=== PATIENT | female | born 1985 | race African-American/Black ===

== ENCOUNTER 2019-06-27 01:23 | Emergency (ER) | payer SELFPAY ==
[~2019-06-27] VITALS: Ht 160 cm; Wt 71.2 kg
[2019-06-27] MEDS ORDERED: KETOROLAC 30MG/ML VIAL IV STA (02:24)
[2019-06-27 03:05] LABS: BASOPHILS % 0.7 % (0.0-2.0); EOSINOPHILS % 1.4 % (0.0-5.0); HEMATOCRIT. 34.1 % (36.0-48.0); HEMOGLOBIN. 11.3 g/dL (12.0-16.0); LYMPHOCYTES % 38.5 % (20.0-50.0); MEAN CORPUSCULAR HEMOGLOBIN 27.2 pg (28.0-32.0); MEAN CORPUSCULAR VOLUME 82.6 fL (81.0-99.0); MEAN PLATELET VOLUME 7.9 fl (7.4-10.4); MONOCYTES % 8.3 % (2.0-8.0); NEUTROPHILS % 51.1 % (40.0-76.0); PLATELET 257 x1000/uL (130-400); RED BLOOD CELL COUNT 4.13 mill/uL (4.2-5.4); RED CELL DISTRIBUTION WIDTH 17.2 % (11.6-14.6)
[2019-06-27 03:07] LABS: CHLORIDE 107 mEq/L (98-107)
[2019-06-27 03:16] LABS: CLARITY URINE CLEAR (CLEAR); COLOR URINE DARK YELLOW (YELLOW); KETONES URINE NEGATIVE (NEGATIVE); LEUKOCYTE ESTERASE URINE NEGATIVE (NEGATIVE); NITRITE URINE NEGATIVE (NEGATIVE); OCCULT BLOOD URINE NEGATIVE (NEGATIVE); PROTEIN URINE NEGATIVE (NEGATIVE); SPECIFIC GRAVITY URINE 1.015 (1.005-1.030); UROBILINOGEN URINE 0.2 E.U./dL (0.2-1.0)
[2019-06-27] MEDS ORDERED: AZITHROMYCIN 500 MG TABLET PO ONE (04:15)
[2019-06-27] MEDS ORDERED: LIDOCAINE HCL/PF 1% 10 MG/ML 5ML VIAL IJ ONE (04:15)
[2019-06-27] MEDS ORDERED: CEFTRIAXONE SODIUM 250 MG/VIAL IM ONE (04:15)
[2019-06-27 05:00] VITALS: BP 112/60
[2019-06-29 04:07] LABS: CHLAMYDIA TRACHOMATIS NAA Negative (Negative); NEISSERIA GONORRHOEAE NAA Negative (Negative)
== END 2019-06-27 05:25 | disposition home or self-care (01) ==
LOC: ER 01:23
DX: N83.209 Unspecified ovarian cyst, unspecified side (principal); N89.8 Other specified noninflammatory disorders of vagina; Z11.3 Encounter for screening for infections with a predominantly sexual mode of transmission; J45.909 Unspecified asthma, uncomplicated
CPT/HCPCS: 36415; 76830; 76856; 80053; 81003; 81025; 83690; 85025; 85610; 87210; 87491; 87591; 93005; 99284; J1885

== ENCOUNTER 2019-10-08 22:47 | Emergency (ER) | payer MEDICARE, MEDICAID ==
[~2019-10-08] VITALS: Ht 160 cm; Wt 68.0 kg
[2019-10-09] MEDS ORDERED: KETOROLAC 60MG/2ML VIAL IM STA (01:57)
[2019-10-09 02:31] LABS: BASOPHILS % 1.3 % (0.0-2.0); EOSINOPHILS % 0.6 % (0.0-5.0); HEMATOCRIT. 35.2 % (36.0-48.0); HEMOGLOBIN. 11.6 g/dL (12.0-16.0); LYMPHOCYTES % 33.6 % (20.0-50.0); MEAN CORPUSCULAR HEMOGLOBIN 27.2 pg (28.0-32.0); MEAN CORPUSCULAR VOLUME 82.4 fL (81.0-99.0); MEAN PLATELET VOLUME 7.5 fl (7.4-10.4); MONOCYTES % 5.6 % (2.0-8.0); NEUTROPHILS % 58.9 % (40.0-76.0); PLATELET 281 x1000/uL (130-400); RED BLOOD CELL COUNT 4.28 mill/uL (4.2-5.4); RED CELL DISTRIBUTION WIDTH 15.6 % (11.6-14.6)
[2019-10-09 02:36] LABS: CHLORIDE 106 mEq/L (98-107); PROTHROMBIN TIME 10.8 sec (9.6-11.0)
[2019-10-09 02:47] LABS: B-HCG QUANTITATIVE 6 mIU/mL (<3)
[2019-10-09 03:38] LABS: CLARITY URINE CLEAR (CLEAR); COLOR URINE YELLOW (YELLOW); KETONES URINE TRACE (NEGATIVE); LEUKOCYTE ESTERASE URINE NEGATIVE (NEGATIVE); NITRITE URINE NEGATIVE (NEGATIVE); OCCULT BLOOD URINE NEGATIVE (NEGATIVE); PH URINE 5.5 (4.5-8.0); PROTEIN URINE NEGATIVE (NEGATIVE); SPECIFIC GRAVITY URINE 1.024 (1.005-1.030); UROBILINOGEN URINE 0.2 E.U./dL (0.2-1.0)
[2019-10-09 03:48] LABS: *AMPHETAMINES SCREEN URINE NEGATIVE (NEGATIVE); *BARBITURATES SCREEN URINE NEGATIVE (NEGATIVE); *BENZODIAZEPINES SCREEN URINE NEGATIVE (NEGATIVE); *COCAINE SCREEN URINE NEGATIVE (NEGATIVE)
[2019-10-09 03:49] LABS: METHADONE URINE SCREEN NEGATIVE (NEGATIVE); OPIATES URINE SCREEN NEGATIVE (NEGATIVE); PHENCYCLIDINE URINE SCREEN NEGATIVE (NEGATIVE)
[2019-10-09 04:06] VITALS: BP 101/73
[2019-10-09 04:10] LABS: CANNABINOID URINE SCREEN PRESUMTIVE POSITIVE (NEGATIVE)
== END 2019-10-09 04:06 | disposition home or self-care (01) ==
LOC: ER 22:47
DX: D25.9 Leiomyoma of uterus, unspecified (principal); N83.209 Unspecified ovarian cyst, unspecified side; R10.9 Unspecified abdominal pain; J45.909 Unspecified asthma, uncomplicated
CPT/HCPCS: 36415; 76830; 76856; 80053; 80305; 81003; 81025; 84702; 85025; 99284; J1885

== ENCOUNTER 2019-11-02 22:51 | Emergency (ER) | payer MEDICARE, MEDICAID ==
[~2019-11-02] VITALS: Ht 160 cm; Wt 71.0 kg
[2019-11-03] MEDS ORDERED: ACETAMINOPHEN 325MG TABLET PO ONE
[2019-11-03 00:40] LABS: BASOPHILS % 0.6 % (0.0-2.0); EOSINOPHILS % 1.1 % (0.0-5.0); HEMATOCRIT. 36.1 % (36.0-48.0); HEMOGLOBIN. 12.3 g/dL (12.0-16.0); MEAN CORPUSCULAR HEMOGLOBIN 28.2 pg (28.0-32.0); MEAN CORPUSCULAR VOLUME 83.1 fL (81.0-99.0); MEAN PLATELET VOLUME 8.1 fl (7.4-10.4); MONOCYTES % 5.8 % (2.0-8.0); NEUTROPHILS % 65.5 % (40.0-76.0); PLATELET 339 x1000/uL (130-400); RED BLOOD CELL COUNT 4.34 mill/uL (4.2-5.4); RED CELL DISTRIBUTION WIDTH 15.7 % (11.6-14.6)
[2019-11-03 00:42] LABS: CLARITY URINE CLOUDY (CLEAR); COLOR URINE YELLOW (YELLOW); KETONES URINE TRACE (NEGATIVE); LEUKOCYTE ESTERASE URINE NEGATIVE (NEGATIVE); NITRITE URINE NEGATIVE (NEGATIVE); OCCULT BLOOD URINE NEGATIVE (NEGATIVE); PROTEIN URINE NEGATIVE (NEGATIVE); SPECIFIC GRAVITY URINE 1.034 (1.005-1.030)
[2019-11-03 00:52] LABS: CHLORIDE 109 mEq/L (98-107)
[2019-11-03 03:00] VITALS: BP 121/71
== END 2019-11-03 03:04 | disposition home or self-care (01) ==
LOC: ER 22:51
DX: D25.9 Leiomyoma of uterus, unspecified (principal); N83.00 Follicular cyst of ovary, unspecified side; J45.909 Unspecified asthma, uncomplicated; N94.0 Mittelschmerz
CPT/HCPCS: 36415; 76830; 76856; 80053; 81003; 81025; 85025; 99284

== ENCOUNTER 2019-11-30 07:43 | Emergency (ER) | payer MEDICAID, MEDICARE ==
[~2019-11-30] VITALS: Ht 160 cm; Wt 70.9 kg
[2019-11-30] MEDS ORDERED: ACETAMINOPHEN 500MG TABLET PO ONE (08:45)
[2019-11-30 08:58] VITALS: BP 135/80
== END 2019-11-30 08:55 | disposition home or self-care (01) ==
LOC: ER 07:43
DX: B34.9 Viral infection, unspecified (principal); J45.909 Unspecified asthma, uncomplicated; Z98.890 Other specified postprocedural states
CPT/HCPCS: 71045; 93005; 99283

== ENCOUNTER 2020-02-19 18:56 | Emergency (ER) | payer MEDICARE, MEDICAID ==
[~2020-02-19] VITALS: Ht 172.7 cm; Wt 75.0 kg
[2020-02-19] MEDS ORDERED: SODIUM CHLORIDE 0.9% 1,000 ML IV ONE (19:17)
[2020-02-19 19:43] LABS: CLARITY URINE CLOUDY (CLEAR); COLOR URINE YELLOW (YELLOW); KETONES URINE 1+ (NEGATIVE); LEUKOCYTE ESTERASE URINE 2+ (NEGATIVE); NITRITE URINE NEGATIVE (NEGATIVE); OCCULT BLOOD URINE NEGATIVE (NEGATIVE); PROTEIN URINE 1+ (NEGATIVE); SPECIFIC GRAVITY URINE 1.043 (1.005-1.030)
[2020-02-19] MEDS ORDERED: ACETAMINOPHEN 325MG TABLET PO NR (20:15)
[2020-02-19] MEDS ORDERED: CEFTRIAXONE 1 G PREMIX 50 ML IV SCH (20:15)
[2020-02-19 20:56] LABS: BASOPHILS % 0.6 % (0.0-2.0); EOSINOPHILS % 0.6 % (0.0-5.0); HEMOGLOBIN. 12.6 g/dL (12.0-16.0); MEAN CORPUSCULAR HEMOGLOBIN 29.1 pg (28.0-32.0); MEAN CORPUSCULAR VOLUME 85.8 fL (81.0-99.0); MEAN PLATELET VOLUME 7.3 fl (7.4-10.4); NEUTROPHILS % 76.8 % (40.0-76.0); PLATELET 265 x1000/uL (130-400); RED BLOOD CELL COUNT 4.31 mill/uL (4.2-5.4); RED CELL DISTRIBUTION WIDTH 14.1 % (11.6-14.6)
[2020-02-19 20:59] LABS: CHLORIDE 104 mEq/L (98-107)
[2020-02-19 22:30] VITALS: BP 122/67
== END 2020-02-20 00:20 | disposition home or self-care (01) ==
LOC: ER 18:56
DX: O26.892 Other specified pregnancy related conditions, second trimester (principal); O23.42 Unspecified infection of urinary tract in pregnancy, second trimester; J45.909 Unspecified asthma, uncomplicated; Z3A.14 14 weeks gestation of pregnancy
CPT/HCPCS: 36415; 76805; 76817; 80053; 81003; 81025; 85025; 86850; 86900; 86901; 87086; 96374; 99284; J0696; J7030

== ENCOUNTER 2020-02-23 11:17 | Emergency (ER) | payer MEDICARE, MEDICAID ==
[~2020-02-23] VITALS: Ht 160 cm; Wt 83.0 kg
[2020-02-23 16:59] LABS: CLARITY URINE CLEAR (CLEAR); COLOR URINE YELLOW (YELLOW); KETONES URINE NEGATIVE (NEGATIVE); LEUKOCYTE ESTERASE URINE 3+ (NEGATIVE); NITRITE URINE NEGATIVE (NEGATIVE); OCCULT BLOOD URINE NEGATIVE (NEGATIVE); PROTEIN URINE NEGATIVE (NEGATIVE); SPECIFIC GRAVITY URINE 1.021 (1.005-1.030); UROBILINOGEN URINE 0.2 E.U./dL (0.2-1.0)
[2020-02-23 17:08] LABS: *AMPHETAMINES SCREEN URINE NEGATIVE (NEGATIVE); *BARBITURATES SCREEN URINE NEGATIVE (NEGATIVE); *COCAINE SCREEN URINE NEGATIVE (NEGATIVE)
[2020-02-23 17:09] LABS: *BENZODIAZEPINES SCREEN URINE NEGATIVE (NEGATIVE); CANNABINOID URINE SCREEN NEGATIVE (NEGATIVE); METHADONE URINE SCREEN NEGATIVE (NEGATIVE); OPIATES URINE SCREEN NEGATIVE (NEGATIVE); PHENCYCLIDINE URINE SCREEN NEGATIVE (NEGATIVE)
[2020-02-23 17:31] LABS: BASOPHILS % 0.4 % (0.0-2.0); EOSINOPHILS % 0.6 % (0.0-5.0); HEMATOCRIT. 34.9 % (36.0-48.0); HEMOGLOBIN. 11.8 g/dL (12.0-16.0); LYMPHOCYTES % 18.1 % (20.0-50.0); MEAN CORPUSCULAR HEMOGLOBIN 29.3 pg (28.0-32.0); MEAN CORPUSCULAR VOLUME 86.4 fL (81.0-99.0); MEAN PLATELET VOLUME 7.7 fl (7.4-10.4); MONOCYTES % 6.2 % (2.0-8.0); NEUTROPHILS % 74.7 % (40.0-76.0); PLATELET 254 x1000/uL (130-400); RED BLOOD CELL COUNT 4.04 mill/uL (4.2-5.4); RED CELL DISTRIBUTION WIDTH 14.3 % (11.6-14.6)
[2020-02-23 17:38] LABS: CHLORIDE 101 mEq/L (98-107)
[2020-02-23 18:02] LABS: B-HCG QUANTITATIVE 57765 mIU/mL (<3)
[2020-02-23 18:11] VITALS: BP 118/60
== END 2020-02-23 18:14 | disposition home or self-care (01) ==
LOC: ER 11:29
DX: O20.0 Threatened abortion (principal); O23.32 Infections of other parts of urinary tract in pregnancy, second trimester; Z3A.14 14 weeks gestation of pregnancy; J45.909 Unspecified asthma, uncomplicated; Z98.890 Other specified postprocedural states
CPT/HCPCS: 36415; 76805; 80053; 80305; 81003; 81025; 84702; 85025; 86850; 86900; 99284

== ENCOUNTER 2020-06-15 01:26 | Observation (INO) | payer MEDICARE, MEDICAID ==
[~2020-06-15] VITALS: Ht 160 cm; Wt 86.2 kg
[2020-06-15] MEDS ORDERED: FERR236T3 MT (02:43)
[2020-06-15] MEDS ORDERED: PNV1TABL76 PO (02:43)
[2020-06-15] MEDS ORDERED: LACTATED RINGERS 1,000 ML IV SCH (02:45)
[2020-06-15] MEDS ORDERED: TERBUTALINE SULFATE 1MG/ML VIAL SUBCUT ONE (02:45)
[2020-06-15 03:16] LABS: CLARITY URINE CLEAR (CLEAR); COLOR URINE YELLOW (YELLOW); KETONES URINE 1+ (NEGATIVE); LEUKOCYTE ESTERASE URINE TRACE (NEGATIVE); NITRITE URINE NEGATIVE (NEGATIVE); OCCULT BLOOD URINE NEGATIVE (NEGATIVE); PROTEIN URINE NEGATIVE (NEGATIVE); SPECIFIC GRAVITY URINE 1.021 (1.005-1.030); UROBILINOGEN URINE 0.2 E.U./dL (0.2-1.0)
== END 2020-06-15 05:15 | disposition home or self-care (01) ==
LOC: 8 EST LDRP 01:26
PROVIDERS: ADMIT Specialist; ATTEND Specialist
DX: O26.893 Other specified pregnancy related conditions, third trimester (principal); R10.9 Unspecified abdominal pain; Z3A.30 30 weeks gestation of pregnancy
CPT/HCPCS: 59025; 81003; 96360; 96361; 96372; G0378; J3105; 59412; 99281

== ENCOUNTER 2020-08-15 03:22 | Observation (INO) | payer MEDICARE, MEDICAID ==
[~2020-08-15] VITALS: Ht 160 cm; Wt 96.2 kg
[~2020-08-15 03:22] MED LIST: FERR236T3 MT; PNV1TABL76 PO
== END 2020-08-15 06:10 | disposition home or self-care (01) ==
LOC: 8 EST LDRP 03:22
PROVIDERS: ADMIT Obstetrics & Gynecology; ATTEND Obstetrics & Gynecology
DX: O26.893 Other specified pregnancy related conditions, third trimester (principal); R10.30 Lower abdominal pain, unspecified; Z3A.39 39 weeks gestation of pregnancy
CPT/HCPCS: 59025; 76805; 76818; 99281; G0378

== ENCOUNTER 2020-09-10 00:01 | Emergency (ER) | payer MEDICARE, MEDICAID ==
[~2020-09-10] VITALS: Ht 162.6 cm; Wt 88.0 kg
[2020-09-10 00:07] VITALS: BP 129/93
== END 2020-09-10 00:44 | disposition home or self-care (01) ==
LOC: ER 00:01
DX: Z48.00 Encounter for change or removal of nonsurgical wound dressing (principal)
CPT/HCPCS: 99282

== ENCOUNTER 2021-09-08 23:12 | Emergency (ER) | payer MEDICARE, MEDICAID ==
[~2021-09-08] VITALS: Ht 160 cm; Wt 77.3 kg
[2021-09-08 23:27] VITALS: BP 116/68
[2021-09-09] MEDS ORDERED: ACETAMINOPHEN 325MG TABLET PO STA (00:22)
[2021-09-09 01:15] LABS: CLARITY URINE CLOUDY (CLEAR); COLOR URINE DK YELLOW (YELLOW); KETONES URINE TRACE (NEGATIVE); LEUKOCYTE ESTERASE URINE NEGATIVE (NEGATIVE); NITRITE URINE NEGATIVE (NEGATIVE); OCCULT BLOOD URINE NEGATIVE (NEGATIVE); PROTEIN URINE 1+ (NEGATIVE); SPECIFIC GRAVITY URINE 1.038 (1.005-1.030)
[2021-09-09] MEDS ORDERED: CEPH500C2 MT (01:56)
== END 2021-09-09 02:24 | disposition home or self-care (01) ==
LOC: ER 23:12
DX: M79.89 Other specified soft tissue disorders (principal); N39.0 Urinary tract infection, site not specified; J45.909 Unspecified asthma, uncomplicated; Z98.890 Other specified postprocedural states
CPT/HCPCS: 81003; 81025; 93971; 99284

== ENCOUNTER 2021-11-15 21:49 | Observation (INO) | payer MEDICARE, MEDICAID ==
[~2021-11-15] VITALS: Ht 160 cm; Wt 84.4 kg
[~2021-11-15 21:49] MED LIST changes: +CEPH500C2 MT; -FERR236T3 MT; -PNV1TABL76 PO
[2021-11-15] MEDS ORDERED: ACETAMINOPHEN 500MG TABLET PO PRN (23:15)
[2021-11-16 00:16] LABS: CLARITY URINE CLOUDY (CLEAR); COLOR URINE YELLOW (YELLOW); KETONES URINE 2+ (NEGATIVE); LEUKOCYTE ESTERASE URINE 1+ (NEGATIVE); NITRITE URINE NEGATIVE (NEGATIVE); OCCULT BLOOD URINE NEGATIVE (NEGATIVE); PROTEIN URINE 1+ (NEGATIVE); SPECIFIC GRAVITY URINE 1.033 (1.005-1.030)
[2021-11-16] MEDS ORDERED: LACTATED RINGERS 1,000 ML IV ONE (02:00)
== END 2021-11-16 03:00 | disposition home or self-care (01) ==
LOC: 8 EST LDRP 21:49
PROVIDERS: ADMIT Obstetrics & Gynecology; ATTEND Obstetrics & Gynecology
DX: O26.893 Other specified pregnancy related conditions, third trimester (principal); R10.30 Lower abdominal pain, unspecified; O62.9 Abnormality of forces of labor, unspecified; O99.891 Other specified diseases and conditions complicating pregnancy; M54.9 Dorsalgia, unspecified; O09.523 Supervision of elderly multigravida, third trimester; Z3A.27 27 weeks gestation of pregnancy
CPT/HCPCS: 59025; 76805; 76818; 81003; 96360; A4215; G0378; 99281

== ENCOUNTER 2022-01-10 05:22 | Emergency (ER) | payer MEDICARE, MEDICAID ==
[~2022-01-10] VITALS: Ht 160 cm; Wt 80.0 kg
[2022-01-10 06:39] LABS: BASOPHILS % 0.6 % (0.0-2.0); EOSINOPHILS % 2.1 % (0.0-5.0); HEMATOCRIT. 36.1 % (36.0-48.0); HEMOGLOBIN. 11.8 g/dL (12.0-16.0); MEAN CORPUSCULAR HEMOGLOBIN 27.3 pg (28.0-32.0); MEAN CORPUSCULAR VOLUME 83.7 fL (81.0-99.0); MEAN PLATELET VOLUME 8.3 fl (7.4-10.4); MONOCYTES % 7.6 % (2.0-8.0); NEUTROPHILS % 56.7 % (40.0-76.0); PLATELET 185 x1000/uL (130-400); RED BLOOD CELL COUNT 4.31 mill/uL (4.2-5.4)
[2022-01-10 06:45] LABS: CHLORIDE 112 mEq/L (98-107)
[2022-01-10 06:47] LABS: PROTHROMBIN TIME 10.3 sec (9.6-11.0)
[2022-01-10 09:59] VITALS: BP 124/84
== END 2022-01-10 10:02 | disposition home or self-care (01) ==
LOC: ER 05:22
DX: G89.18 Other acute postprocedural pain (principal); Z48.01 Encounter for change or removal of surgical wound dressing; J45.909 Unspecified asthma, uncomplicated; Z98.890 Other specified postprocedural states
CPT/HCPCS: 36415; 74176; 80053; 83605; 85025; 99284

== ENCOUNTER 2022-01-22 15:59 | Emergency (ER) | payer MEDICARE, MEDICAID ==
[~2022-01-22] VITALS: Ht 160 cm; Wt 78.0 kg
[2022-01-22 17:07] VITALS: BP 146/78
[2022-01-22 19:50] LABS: BASOPHILS % 0.6 % (0.0-2.0); HEMATOCRIT. 37.4 % (36.0-48.0); LYMPHOCYTES % 35.7 % (20.0-50.0); MEAN CORPUSCULAR HEMOGLOBIN 27.3 pg (28.0-32.0); MEAN CORPUSCULAR VOLUME 84.9 fL (81.0-99.0); MEAN PLATELET VOLUME 7.9 fl (7.4-10.4); MONOCYTES % 5.6 % (2.0-8.0); NEUTROPHILS % 57.1 % (40.0-76.0); PLATELET 238 x1000/uL (130-400); RED BLOOD CELL COUNT 4.41 mill/uL (4.2-5.4)
[2022-01-22 19:52] LABS: CHLORIDE 105 mEq/L (98-107)
[2022-01-22 20:01] LABS: HCG SCREEN NEGATIVE
== END 2022-01-22 21:00 | disposition left against medical advice (07) ==
LOC: ER 15:59
DX: M79.10 Myalgia, unspecified site (principal); R11.0 Nausea; R68.83 Chills (without fever)
CPT/HCPCS: 36415; 71045; 80053; 83605; 84484; 84703; 85025; 93005; 99285

== ENCOUNTER 2022-04-02 15:54 | Emergency (ER) | payer MEDICARE, MEDICAID ==
[~2022-04-02] VITALS: Ht 160 cm; Wt 85.0 kg
[2022-04-02] MEDS ORDERED: ACETAMINOPHEN 325MG TABLET PO ONE (20:45)
[2022-04-02] MEDS ORDERED: ACET-2708 MT (21:33)
[2022-04-02 22:00] VITALS: BP 125/75
== END 2022-04-03 02:10 | disposition home or self-care (01) ==
LOC: ER 15:54
DX: S93.491A Sprain of other ligament of right ankle, initial encounter (principal); X58.XXXA Exposure to other specified factors, initial encounter; Y93.89 Activity, other specified; Y92.89 Other specified places as the place of occurrence of the external cause; Y99.8 Other external cause status; J45.909 Unspecified asthma, uncomplicated; Z98.890 Other specified postprocedural states
CPT/HCPCS: 73610; 81025; 99283

== ENCOUNTER 2022-08-07 10:41 | Emergency (ER) | payer MEDICARE, MEDICAID ==
[~2022-08-07] VITALS: Ht 160 cm; Wt 77.0 kg
[~2022-08-07 10:41] MED LIST changes: +ACET-2708 MT
[2022-08-07 10:44] VITALS: BP 132/82
[2022-08-07] MEDS ORDERED: ACETAMINOPHEN 325MG TABLET PO ONE (13:15)
[2022-08-07] MEDS ORDERED: TOPUD MT (13:19)
[2022-08-07] MEDS ORDERED: CEPH500C2 MT (13:19)
== END 2022-08-07 13:37 | disposition home or self-care (01) ==
LOC: ER 10:41
DX: M79.89 Other specified soft tissue disorders (principal); Z59.00 Homelessness unspecified; J45.909 Unspecified asthma, uncomplicated; Z98.890 Other specified postprocedural states; Z79.899 Other long term (current) drug therapy
CPT/HCPCS: 81025; 99283

== ENCOUNTER 2024-02-10 19:45 | Emergency (ER) | payer MEDICARE, MEDICAID ==
[~2024-02-10] VITALS: Ht 160 cm; Wt 89.0 kg
[~2024-02-10 19:45] MED LIST changes: +TOPUD MT
[2024-02-10 19:52] VITALS: O2SAT 100
[2024-02-10 20:22] LABS: BASOPHILS % 0.6 % (0.0-2.0); EOSINOPHILS % 0.3 % (0.0-5.0); HEMATOCRIT. 32.6 % (36.0-48.0); HEMOGLOBIN. 10.9 g/dL (12.0-16.0); MEAN CORPUSCULAR HEMOGLOBIN 29.4 pg (28.0-32.0); MEAN CORPUSCULAR HGB CONC 33.3 g/dL (31.0-37.0); MEAN CORPUSCULAR VOLUME 88.4 fL (81.0-99.0); MEAN PLATELET VOLUME 7.7 fl (7.4-10.4); MONOCYTES % 8.2 % (2.0-8.0); NEUTROPHILS % 70.9 % (40.0-76.0); PLATELET 299 x1000/uL (130-400); RED BLOOD CELL COUNT 3.68 mill/uL (4.2-5.4); RED CELL DISTRIBUTION WIDTH 13.7 % (11.6-14.6); WHITE BLOOD COUNT 12.3 x1000/uL (4.5-11.0)
[2024-02-10 20:27] LABS: CHLORIDE 104 mEq/L (98-107); SODIUM 136 mEq/L (136-145)
[2024-02-10 20:28] LABS: CARBON DIOXIDE 22 mEq/L (21-32)
[2024-02-10 20:29] LABS: CALCIUM 8.8 mg/dL (8.7-10.4)
[2024-02-10 20:33] LABS: CREATININE 0.7 mg/dL (0.6-1.0); GLUCOSE 89 mg/dL (70-105)
[2024-02-10 20:34] LABS: UREA NITROGEN BLOOD 9 mg/dL (9-23)
[2024-02-10 21:16] VITALS: BP 126/65; PULSE 81; RESP 16; TEMP 98.4
== END 2024-02-10 21:42 | disposition left against medical advice (07) ==
LOC: ER 19:45
DX: O26.893 Other specified pregnancy related conditions, third trimester (principal); O99.513 Diseases of the respiratory system complicating pregnancy, third trimester; Z3A.36 36 weeks gestation of pregnancy; Z98.890 Other specified postprocedural states
CPT/HCPCS: 36415; 76815; 80048; 85025; 86705; 86850; 86900; 99284